=== PATIENT | male | born 1965 | race Caucasian/White ===

== ENCOUNTER → 2017-12-10 | Emergency (ER) | payer BC ==
[~2017-12-10] VITALS: Ht 188 cm; Wt 111.6 kg
[~2017-12-10] MED LIST: CARDIZEM120 MG; NORVASC5 MG; TERAZOSIN HCL5 MG
== END | disposition home or self-care (01) ==
LOC: ER 01:56
DX: R00.2 Palpitations (principal)

== ENCOUNTER 2019-04-14 08:40 | Outpatient (CLI) | payer OTHER | END 2019-04-14 16:23 | disposition home or self-care (01) | LOC: LAB 08:40 | DX: E03.8 Other specified hypothyroidism (principal); D50.8 Other iron deficiency anemias; E78.2 Mixed hyperlipidemia; I11.9 Hypertensive heart disease without heart failure; E56.8 Deficiency of other vitamins; N39.0 Urinary tract infection, site not specified; Z12.11 Encounter for screening for malignant neoplasm of colon; E55.9 Vitamin D deficiency, unspecified; N19 Unspecified kidney failure; E11.9 Type 2 diabetes mellitus without complications; R80.8 Other proteinuria; C18.0 Malignant neoplasm of cecum; K92.1 Melena; C61 Malignant neoplasm of prostate; R06.02 Shortness of breath ==

== ENCOUNTER 2019-05-05 14:00 | Outpatient (CLI) | payer OTHER | END 2019-05-05 14:18 | disposition home or self-care (01) | LOC: SONOGRAMA 14:00 | DX: R80.8 Other proteinuria (principal) ==

== ENCOUNTER 2019-05-10 07:09 | Outpatient (CLI) | payer OTHER | END 2019-05-10 07:46 | disposition home or self-care (01) | LOC: LAB 07:09 | DX: N17.8 Other acute kidney failure (principal); R80.8 Other proteinuria ==